=== PATIENT | male | born 1945 | race Caucasian/White ===

== ENCOUNTER 2018-07-12 20:08 | Observation (INO) | payer MEDICARE ==
[~2018-07-12] VITALS: Ht 172.7 cm; Wt 102.6 kg
--- NOTE | ~2018-07-12 | EC ---
PATIENT:FRANCISCO J HUGHES DATE OF SERVICE: 07/13/18 SEX: M MEDICAL RECORD: [id number] DATE OF : 43 LOCATION:D.M2 D.210 AGE OF PATIENT: 72 ADMISSION DATE: 07/13/18 REFERRING PHYSICIAN: INTERPRETING PHYSICIAN: NANCY HATHAWAY MD ECHOCARDIOGRAM REPORT ECHO CHARGES 4 ECHO COMPLETE Date: 07/13/18 CLINICAL DIAGNOSIS: VERTIGO ECHOCARDIOGRAPHIC MEASUREMENTS (adult normal given) AC root (d.<3.7cm) 3.4 cm LV Septum d (<1.2 cm> 1.5 cm Valve Excursion 2.0 cm LV Septum (systole) 2.3 cm Left Atria (s.<4.0cm> 3.7 cm LVPW d(<1.2cm) 1.6 cm RV (d.<2.3cm) 2.7 cm LVPW (sytole) 2.2 cm LV diastole(<5.6CM) 5.3 cm MV E-F(>70mm/sec) cm LV systole 2.6 cm LVOT Diameter 2.1 cm MV exc.(>10mm) cm Est.ejection fraction (50-75%) % DOPPLER: LVIT cm/sec A 79.0 cm/sec E 67.0 cm/sec LA cm/sec RVSP 29.0 mmHg LVOT 118 cm/sec AOP1/2T m/s Asc. Ao 159 cm/sec RVOT 64.0 cm/sec RA cm/sec PA 86.0 cm/sec AV Gradient Peak 10.1 mmHg AV Mean 5.2 mmHg AV Area 2.5 cm MV Gradient Peak 4.9 mmHg MV Mean 1.4 mmHg MV Area cm COMMENTS: Moving Worker: 1 SUKHDEV GUY Irrigation Manager: 2 Dr. Perez TAPE# PACS Pericardial Effusion N DATE OF SERVICE: 07/13/2018 Echocardiogram FINDINGS: 1. Left ventricular chamber size is within normal limits. Left ventricular systolic function is normal. Overall ejection fraction estimated at 60%. 2. Left atrium, right atrium, right ventricle chamber sizes are within normal limits. 3. Valvular structures have normal structure and motion. ECHOCARDIOGRAM REPORT [id number] FRANCISCO J HUGHES 4. Doppler interrogation reveals mild mitral regurgitation, mild tricuspid regurgitation, no other valvular insufficiency or stenosis. Pulmonary systolic pressure is normal, estimated at 29 mmHg. 5. No evidence of pericardial effusion or left ventricular thrombus. TRANSINT:[id number] Voice Confirmation ID: [id number] DOCUMENT ID: [id number] NANCY HATHAWAY MD at 0950 CC: [id number] DICTATION DATE: 07/14/18909 WOOD CASKET MAKER: 07/14/18 0941 ADM IN [facility] [address] [place] [id number]
--- NOTE | ~2018-07-12 | CN ---
PATIENT NAME:FRANCISCO J HUGHES MEDICAL RECORD: [id number] : 43 LOCATION:. D.2103 ADMIT DATE: 07/13/18 ACCOUNT: [id number] CONSULTING PHYSICIAN: NANCY HATHAWAY MD REFERRING PHYSICIAN: SJ DAWSON DO DATE OF CONSULTATION: 07/13/2018 DIAGNOSES: 1. Dizziness/vertigo. 2. Hypertension. 3. Hyperlipidemia. HISTORY OF PRESENT ILLNESS: This is a gentleman who presents with dizziness. No chest pain. No chest discomfort, no shortness of breath. He was initially found to have his systolic blood pressure in the 200 range, it has remained high; however, he has not taken his medications. HOME MEDICATIONS: Lisinopril 20 mg daily, metoprolol XL 100 mg a day. He has normal troponin. His EKG is with no ST-T abnormalities. PHYSICAL EXAMINATION: GENERAL APPEARANCE: Well-nourished, well-developed, appears stated age. Level of distress, comfortable. PSYCHIATRIC: Mental status, alert, normal affect. Orientation, oriented to time, place and person. EYES: Lids and conjunctiva, noninjected. No discharge, no pallor. ENT: Lips, teeth, gums, normal dentition. Oropharynx, no cyanosis, no pallor. NECK: Carotid arteries, bilateral normal upstroke, no bruits, no thrills. JUGULAR VEINS: No jugular venous pressure or distention. CERVICAL LYMPH NODES: Nontender, nonenlarged. THYROID: Not enlarged. Nontender. No nodules. LUNGS: Respiratory effort, unlabored. CHEST: Normal curvature. No thoracic deformity. No chest wall tenderness. Percussion, resonant. Auscultation, clear. No wheezes, no rales, no rhonchi. CARDIOVASCULAR: Precordial exam, nondisplaced. No heaves or pericardial thrills. Rate and rhythm, regular. Heart sounds, normal S1, normal S2. No S3, no gallop, no rub. Systolic murmur, not heard. Diastolic murmur, not heard. EXTREMITIES: No cyanosis, no edema. Peripheral pulses, full and equal in all extremities, except as noted. No bruits appreciated. ABDOMEN: Soft, nondistended. Normal aorta. No bruit. Nontender. No masses. Liver, nontender, no hepatomegaly. Spleen, nontender, no splenomegaly. MUSCULOSKELETAL: No joint tenderness. No joint swelling. No erythema. NEUROLOGICAL: Normal gait, normal strength, normal tone. SKIN: Warm and dry. OVERALL IMPRESSION: Dizziness. Clearly, his blood pressure is not well controlled. Would increase his lisinopril to 40 mg every day, would not increase the Toprol secondary to his heart rate being in the 60s. I do not think that any of his symptomatology is cardiac in nature and no other cardiac workup is necessary other than the echo that has been ordered. TRANSINT:[id number] Voice Confirmation ID: [id number] DOCUMENT ID: [id number] CONSULT REPORT [id number] FRANCISCO J HUGHES, NANCY ALLRED at 1616 CC: [id number] DICTATION DATE: 07/13/18 1330 EMT P: 07/13/18 1336 ADM IN [place] [id number] [place] [id number]
[~2018-07-12 20:08] MED LIST: CRESTOR10 MG PO; PRINIVIL20 MG PO; TOPROL XL100 MG PO; TRILIPIX135 MG PO; ZOCOR80 MG PO
[2018-07-12] MEDS ORDERED: BAYER CHEWABLE81 MG PO (20:12)
[2018-07-12] MEDS ORDERED: COREG 3.1253.125 MG PO (20:12)
[2018-07-12 20:37] LABS: BASOPHILS 0.1 % (0-2); EOSINOPHILS 2.6 % (0-7); HEMATOCRIT 41.3 % (42.0-54.0); HEMOGLOBIN 14.4 g/dL (13.5-17.5); IMMATURE GRANULOCYTES 0.2 % (0-5); MCH 31.9 pg (26.0-34.0); MCHC 34.9 g/dL (31.0-37.0); MCV 91.6 fL (80.0-100.0); MONOCYTES 7.5 % (2-11); NEUTROPHILS 70.6 % (40-80); PLATELET COUNT 169 10x3/uL (130-400); RBC 4.51 10x6/uL (4.20-6.10); RDW 13.5 % (11.5-14.5); WBC 9.5 10x3/uL (4.8-10.8)
[2018-07-12 20:57] LABS: ALKALINE PHOSPHATASE 57 U/L (46-116); ALT (SGPT) 36 U/L (10-68); BILIRUBIN - TOTAL 0.43 mg/dL (0.2-1.3); CALC OSMOLALITY 290 mosm/kg (275-300); CALCIUM 9.3 mg/dL (8.5-10.1); CARBON DIOXIDE 25.8 mmol/L (21.0-32.0); CHLORIDE - SERUM 105 mmol/L (98-107); CREATININE - SERUM 1.7 mg/dL (0.6-1.3); GLUCOSE 143 mg/dL (74-106); POTASSIUM - SERUM 3.9 mmol/L (3.5-5.1); PROTEIN - SERUM 7.9 g/dL (6.4-8.2); SODIUM 144 mmol/L (136-145); UREA NITROGEN 19 mg/dL (7-18); eGFR NON AFRICAN AMERICAN 42 mL/min (90-120)
[2018-07-12 21:21] LABS: CREATINE KINASE 439 UL (21-232)
[2018-07-12 21:22] LABS: TROPONIN-I < 0.017 ng/mL (0.000-0.060)
[2018-07-12 21:23] LABS: CKMB 1.8 U/L (0.0-3.6)
[2018-07-13] VITALS (7 sets, daily range): BP systolic 148–178; BP diastolic 71–87; Ht 172.7 cm; Wt 102.6 kg
[2018-07-13 07:07] LABS: BASOPHILS 0.2 % (0-2); EOSINOPHILS 0.3 % (0-7); HEMATOCRIT 39.7 % (42.0-54.0); HEMOGLOBIN 13.6 g/dL (13.5-17.5); IMMATURE GRANULOCYTES 0.3 % (0-5); LYMPHOCYTES 29.3 % (15-50); MCH 31.6 pg (26.0-34.0); MCHC 34.3 g/dL (31.0-37.0); MCV 92.3 fL (80.0-100.0); MEAN PLATELET VOLUME 9.8 fL (7.4-10.4); MONOCYTES 10.6 % (2-11); NEUTROPHILS 59.3 % (40-80); PLATELET COUNT 167 10x3/uL (130-400); RDW 13.7 % (11.5-14.5); WBC 6.6 10x3/uL (4.8-10.8)
[2018-07-13 07:08] LABS: ANION GAP 13.7 mmol/L (8-16); CALCIUM 8.8 mg/dL (8.5-10.1); CARBON DIOXIDE 26.5 mmol/L (21.0-32.0); CREATININE - SERUM 1.8 mg/dL (0.6-1.3); POTASSIUM - SERUM 4.2 mmol/L (3.5-5.1)
[2018-07-14 01:02] VITALS: BP 155/84
[2018-07-14 04:47] LABS: BASOPHILS 0.3 % (0-2); EOSINOPHILS 3.3 % (0-7); HEMATOCRIT 38.9 % (42.0-54.0); HEMOGLOBIN 13.1 g/dL (13.5-17.5); IMMATURE GRANULOCYTES 0.2 % (0-5); LYMPHOCYTES 42.3 % (15-50); MCH 31.1 pg (26.0-34.0); MCHC 33.7 g/dL (31.0-37.0); MCV 92.4 fL (80.0-100.0); MEAN PLATELET VOLUME 9.8 fL (7.4-10.4); MONOCYTES 9.6 % (2-11); NEUTROPHILS 44.3 % (40-80); PLATELET COUNT 152 10x3/uL (130-400); RBC 4.21 10x6/uL (4.20-6.10); RDW 13.6 % (11.5-14.5); WBC 6.6 10x3/uL (4.8-10.8)
[2018-07-14 05:18] LABS: ALBUMIN 3.3 g/dL (3.4-5.0); ANION GAP 14.6 mmol/L (8-16); BILIRUBIN - TOTAL 0.38 mg/dL (0.2-1.3); CALCIUM 8.5 mg/dL (8.5-10.1); CARBON DIOXIDE 24.6 mmol/L (21.0-32.0); CREATININE - SERUM 1.7 mg/dL (0.6-1.3); POTASSIUM - SERUM 4.2 mmol/L (3.5-5.1); PROTEIN - SERUM 6.7 g/dL (6.4-8.2)
[2018-07-14 05:51] VITALS: BP 159/75
[2018-07-14 08:30] VITALS: BP 179/84
[2018-07-14] MEDS ORDERED: ZESTRIL40 MG (09:05)
[2018-07-14] MEDS ORDERED: ECOTRIN325 MG PO (09:06)
[2018-07-14 12:58] VITALS: BP 175/84
== END 2018-07-14 14:41 | disposition home or self-care (01) ==
LOC: D.ER 20:08 → D.EDHOLD 07-13 02:09 → OBSVTIME 07-13 02:09 → D.M2 07-13 02:09 → D.EDHOLD 07-13 02:09 → D.M2 07-13 08:11
PROVIDERS: Family Medicine
DX: R42 Dizziness and giddiness (principal); I10 Essential (primary) hypertension; E78.5 Hyperlipidemia, unspecified; N28.9 Disorder of kidney and ureter, unspecified; Z72.0 Tobacco use

== ENCOUNTER 2018-07-24 10:08 | Inpatient (IN) | payer MEDICARE ==
[~2018-07-24] VITALS: Ht 172.7 cm; Wt 104.8 kg
--- NOTE | ~2018-07-24 | HP ---
PATIENT: FRANCISCO J HUGHES MEDICAL RECORD: [id number] ACCOUNT: [id number] LOCATION:[facility] D2308 : [birth year] ADMISSION DATE: 07/24/18 PCP: JEFE LOPEZ MD HISTORY AND PHYSICAL EXAMINATION DATE OF ADMISSION: 07/24/2018 CHIEF COMPLAINT: Abdominal pain. HISTORY OF PRESENT ILLNESS: The patient states he was in his normal state of health until yesterday, he developed diffuse abdominal discomfort. He has had nausea. He has had some diarrhea, continues to have pain and has reported fever up to 104. PAST MEDICAL HISTORY: His past history is significant that he has had COPD. He recently had a TIA. He has had a history of hypertension, hyperlipidemia, rheumatoid arthritis, borderline diabetes. FAMILY HISTORY: Significant for having had malignant neoplasm of the prostate in his father. Mother of myocardial infarction. MEDICATIONS: Include aspirin 81 mg once a day, carvedilol 12.5 b.i.d., pravastatin 80 mg p.o. at bedtime, vitamin D3 5000 international units daily. ALLERGIES: AUGMENTIN, LISINOPRIL, MEDROL DOSEPAK, PLAVIX, ZANTAC. SOCIAL HISTORY: The patient is . He is a 1 pack per day smoker and has been so for most of his adult life. 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 He is educated through the 8th grade. The patient denies any ethanol use or abuse. REVIEW OF SYSTEMS: GENERAL: He denies any headaches, seizure or syncope. HEENT: Denies change in visual or auditory acuity. PULMONARY: He denies any cough, congestion, history of TB, asthma or bronchitis. CARDIOVASCULAR: No chest pain, palpitation, PND or orthopnea. GASTROINTESTINAL: No chronic nausea, vomiting, melena, or hematochezia. GENITOURINARY: No urgency, frequency, or dysuria. PHYSICAL EXAMINATION: VITAL SIGNS: Today, his weight is 220. His blood pressure is 142/70. His pulse is 80. His respirations are 20. Temperature is 99.1. HEENT: Head is normocephalic. No lesions. Ears: TMs clear. Eyes: Pupils equal, round and reactive to light. His extraocular movements are intact. His nasal cavity, oral cavity, oropharynx are clear. NECK: Supple. There is no adenopathy. HEART: Has a regular rate. LUNGS: Clear. ABDOMEN: Distended. Bowel sounds are hypoactive, diffusely tender with rebound and guarding. RECTAL: Deferred. LABORATORY DATA: The patient had a white count today elevated at 11.7. He has a left shift. Hemoglobin 14.6, hematocrit 45, his platelets are 234. HISTORY AND PHYSICAL [id number] FRANCISCO J HUGHES ASSESSMENT: Acute abdomen. PLAN: The patient will be admitted. He will have a CT of the abdomen and pelvis. He will have blood cultures obtained, placed on Flagyl as well as Levaquin. Surgical consultation will be obtained as well. He will have blood cultures times 2, placed on Dilaudid for pain control, IV hydration. TRANSINT:[id number] Voice Confirmation ID: [id number] DOCUMENT ID: [id number] JEFE LOPEZ MD at 0702 CC: [id number] DICTATION DATE: 07/24/18 1052 AGRICULTURAL LOAN OFFICER: 07/24/18 1203 ADM IN [facility] [address] [place] [address]
[~2018-07-24 10:08] MED LIST changes: +BAYER CHEWABLE81 MG PO; +COREG 3.1253.125 MG PO; +ECOTRIN325 MG PO; +ZESTRIL40 MG
[2018-07-24 10:38] VITALS: BP 184/84; BMI 33.8
[2018-07-24 11:55] LABS: BASOPHILS 0 % (0-2); EOSINOPHILS 0 % (0-7); HEMATOCRIT 42.7 % (42.0-54.0); HEMOGLOBIN 14.9 g/dL (13.5-17.5); IMMATURE GRANULOCYTES 0.2 % (0-5); LYMPHOCYTES 9.8 % (15-50); MCHC 34.9 g/dL (31.0-37.0); MCV 91.8 fL (80.0-100.0); MEAN PLATELET VOLUME 10.4 fL (7.4-10.4); PLATELET COUNT 162 10x3/uL (130-400); RBC 4.65 10x6/uL (4.20-6.10); RDW 13.6 % (11.5-14.5); WBC 10.6 10x3/uL (4.8-10.8)
[2018-07-24 12:02] VITALS: BP 184/89
[2018-07-24 12:10] LABS: APPEARANCE CLEAR (CLEAR); COLOR YELLOW (YELLOW); SPECIFIC GRAVITY 1.025 (1.005-1.020)
[2018-07-24 12:11] LABS: BACTERIA FEW /hpf (NONE SEEN); BILIRUBIN NEGATIVE (NEGATIVE); EPITHELIAL CELLS NSEEN /hpf (0-5); GLUCOSE NEGATIVE (NEGATIVE); KETONE NEGATIVE (NEGATIVE); NITRITE POSITIVE (NEGATIVE); PROTEIN TRACE mg/dL (NEGATIVE); RED CELLS - URINE 0-5 /hpf (0-5); UROBILINOGEN NORMAL (NORMAL); WHITE CELLS - URINE NSEEN /hpf (0-5)
[2018-07-24 12:12] LABS: AMORPHOUS SEDIMENT <1+ /lpf (NONE SEEN)
[2018-07-24 12:29] LABS: ALBUMIN 3.6 g/dL (3.4-5.0); ANION GAP 14.7 mmol/L (8-16); BILIRUBIN - TOTAL 0.53 mg/dL (0.2-1.3); CALCIUM 9.7 mg/dL (8.5-10.1); CARBON DIOXIDE 23.7 mmol/L (21.0-32.0); CREATININE - SERUM 1.8 mg/dL (0.6-1.3); POTASSIUM - SERUM 4.4 mmol/L (3.5-5.1); PROTEIN - SERUM 7.2 g/dL (6.4-8.2)
[2018-07-24 19:50] VITALS: BP 198/107
[2018-07-24 21:15] VITALS: BP 169/89
[2018-07-24 22:00] VITALS: BP 167/86
[2018-07-24 23:00] VITALS: BP 175/90
[2018-07-25] VITALS (24 sets, daily range): BP systolic 141–172; BP diastolic 73–105; Ht 172.7 cm; Wt 104.8 kg
[2018-07-25 03:59] LABS: BASOPHILS 0.1 % (0-2); EOSINOPHILS 0.1 % (0-7); HEMATOCRIT 39.3 % (42.0-54.0); HEMOGLOBIN 13.4 g/dL (13.5-17.5); IMMATURE GRANULOCYTES 0.2 % (0-5); LYMPHOCYTES 11.1 % (15-50); MCH 31.4 pg (26.0-34.0); MCHC 34.1 g/dL (31.0-37.0); MEAN PLATELET VOLUME 9.9 fL (7.4-10.4); MONOCYTES 8.5 % (2-11); PLATELET COUNT 152 10x3/uL (130-400); RBC 4.27 10x6/uL (4.20-6.10); RDW 13.6 % (11.5-14.5); WBC 9.1 10x3/uL (4.8-10.8)
[2018-07-25 04:33] LABS: ANION GAP 11.5 mmol/L (8-16); BILIRUBIN - TOTAL 0.35 mg/dL (0.2-1.3); CALCIUM 9.2 mg/dL (8.5-10.1); CARBON DIOXIDE 27.6 mmol/L (21.0-32.0); CREATININE - SERUM 1.8 mg/dL (0.6-1.3); MAGNESIUM - SERUM 1.6 mg/dL (1.8-2.4); PHOSPHOROUS 3.4 mg/dL (2.5-4.9); POTASSIUM - SERUM 4.1 mmol/L (3.5-5.1); PROTEIN - SERUM 7.1 g/dL (6.4-8.2)
[2018-07-25 07:37] LABS: APTT 48.9 SECONDS (22.8-39.4); INR 1.29 (0.85-1.17); PROTIME 15.6 SECONDS (11.6-15.0)
[2018-07-26] VITALS (16 sets, daily range): BP systolic 143–200; BP diastolic 69–113
[2018-07-26 04:19] LABS: BASOPHILS 0.1 % (0-2); EOSINOPHILS 1.2 % (0-7); HEMATOCRIT 39.8 % (42.0-54.0); HEMOGLOBIN 13.4 g/dL (13.5-17.5); IMMATURE GRANULOCYTES 0.1 % (0-5); LYMPHOCYTES 12.7 % (15-50); MCH 31.2 pg (26.0-34.0); MCHC 33.7 g/dL (31.0-37.0); MCV 92.8 fL (80.0-100.0); MEAN PLATELET VOLUME 9.7 fL (7.4-10.4); MONOCYTES 10.8 % (2-11); NEUTROPHILS 75.1 % (40-80); PLATELET COUNT 133 10x3/uL (130-400); RBC 4.29 10x6/uL (4.20-6.10); RDW 13.7 % (11.5-14.5); WBC 7.6 10x3/uL (4.8-10.8)
[2018-07-26 04:27] LABS: ANION GAP 13.1 mmol/L (8-16); CALCIUM 8.6 mg/dL (8.5-10.1); CARBON DIOXIDE 26.5 mmol/L (21.0-32.0); CREATININE - SERUM 1.6 mg/dL (0.6-1.3); POTASSIUM - SERUM 3.6 mmol/L (3.5-5.1)
[2018-07-27 05:09] VITALS: BP 171/94
[2018-07-27 05:27] LABS: BASOPHILS 0 % (0-2); EOSINOPHILS 2.7 % (0-7); HEMATOCRIT 40.2 % (42.0-54.0); HEMOGLOBIN 13.7 g/dL (13.5-17.5); IMMATURE GRANULOCYTES 0.1 % (0-5); MCH 31.4 pg (26.0-34.0); MCHC 34.1 g/dL (31.0-37.0); MEAN PLATELET VOLUME 10.1 fL (7.4-10.4); MONOCYTES 14.8 % (2-11); NEUTROPHILS 67.4 % (40-80); RBC 4.37 10x6/uL (4.20-6.10); RDW 13.5 % (11.5-14.5); WBC 7.1 10x3/uL (4.8-10.8)
[2018-07-27 05:28] LABS: PLATELET COUNT 183 10x3/uL (130-400)
[2018-07-27 05:51] LABS: CALCIUM 8.8 mg/dL (8.5-10.1); CARBON DIOXIDE 28.5 mmol/L (21.0-32.0); CREATININE - SERUM 1.4 mg/dL (0.6-1.3); POTASSIUM - SERUM 3.5 mmol/L (3.5-5.1)
[2018-07-27 08:14] VITALS: BP 177/95
[2018-07-27 20:00] VITALS: BP 155/95
[2018-07-28 04:00] VITALS: BP 194/104
[2018-07-28 05:00] LABS: BASOPHILS 0.2 % (0-2); EOSINOPHILS 2.3 % (0-7); HEMATOCRIT 39.7 % (42.0-54.0); HEMOGLOBIN 13.7 g/dL (13.5-17.5); IMMATURE GRANULOCYTES 0.2 % (0-5); LYMPHOCYTES 16.8 % (15-50); MCH 31.2 pg (26.0-34.0); MCHC 34.5 g/dL (31.0-37.0); MCV 90.4 fL (80.0-100.0); MONOCYTES 16.2 % (2-11); NEUTROPHILS 64.3 % (40-80); PLATELET COUNT 189 10x3/uL (130-400); RBC 4.39 10x6/uL (4.20-6.10); RDW 13.4 % (11.5-14.5); WBC 6.2 10x3/uL (4.8-10.8)
[2018-07-28 05:14] LABS: ALBUMIN 2.6 g/dL (3.4-5.0); ANION GAP 15.4 mmol/L (8-16); BILIRUBIN - TOTAL 0.36 mg/dL (0.2-1.3); CALCIUM 8.9 mg/dL (8.5-10.1); CARBON DIOXIDE 23.4 mmol/L (21.0-32.0); CREATININE - SERUM 1.3 mg/dL (0.6-1.3); MAGNESIUM - SERUM 1.7 mg/dL (1.8-2.4); PHOSPHOROUS 3.1 mg/dL (2.5-4.9); POTASSIUM - SERUM 3.8 mmol/L (3.5-5.1); PROTEIN - SERUM 6.6 g/dL (6.4-8.2)
[2018-07-28 09:25] VITALS: BP 175/100
[2018-07-28 16:31] VITALS: BP 186/113
[2018-07-28 19:58] VITALS: BP 176/84
[2018-07-29] VITALS: BP 195/101
[2018-07-29 04:00] VITALS: BP 163/92
[2018-07-29 06:26] LABS: BASOPHILS 0.3 % (0-2); EOSINOPHILS 1.2 % (0-7); HEMATOCRIT 38.2 % (42.0-54.0); HEMOGLOBIN 13.2 g/dL (13.5-17.5); IMMATURE GRANULOCYTES 0.3 % (0-5); LYMPHOCYTES 15.8 % (15-50); MCH 31.3 pg (26.0-34.0); MCHC 34.6 g/dL (31.0-37.0); MCV 90.5 fL (80.0-100.0); MONOCYTES 14.9 % (2-11); NEUTROPHILS 67.5 % (40-80); PLATELET COUNT 181 10x3/uL (130-400); RBC 4.22 10x6/uL (4.20-6.10); RDW 13.4 % (11.5-14.5); WBC 6.6 10x3/uL (4.8-10.8)
[2018-07-29 07:02] LABS: ALBUMIN 2.6 g/dL (3.4-5.0); ANION GAP 11.8 mmol/L (8-16); BILIRUBIN - TOTAL 0.33 mg/dL (0.2-1.3); CALCIUM 8.5 mg/dL (8.5-10.1); CARBON DIOXIDE 25.7 mmol/L (21.0-32.0); CREATININE - SERUM 1.2 mg/dL (0.6-1.3); MAGNESIUM - SERUM 1.6 mg/dL (1.8-2.4); PHOSPHOROUS 2.7 mg/dL (2.5-4.9); POTASSIUM - SERUM 3.5 mmol/L (3.5-5.1); PROTEIN - SERUM 6.3 g/dL (6.4-8.2)
[2018-07-29 09:39] VITALS: BP 198/106
[2018-07-29 12:00] VITALS: BP 167/87
[2018-07-29 16:00] VITALS: BP 142/74
[2018-07-29 21:11] VITALS: BP 149/81
[2018-07-30 04:24] LABS: BASOPHILS 0.3 % (0-2); HEMOGLOBIN 12.4 g/dL (13.5-17.5); IMMATURE GRANULOCYTES 0.3 % (0-5); LYMPHOCYTES 22.8 % (15-50); MCHC 34.4 g/dL (31.0-37.0); MONOCYTES 15.2 % (2-11); NEUTROPHILS 59.4 % (40-80); PLATELET COUNT 180 10x3/uL (130-400); RDW 13.6 % (11.5-14.5); WBC 6.6 10x3/uL (4.8-10.8)
[2018-07-30 04:41] LABS: ALBUMIN 2.6 g/dL (3.4-5.0); ANION GAP 12.7 mmol/L (8-16); BILIRUBIN - TOTAL 0.28 mg/dL (0.2-1.3); CALCIUM 8.4 mg/dL (8.5-10.1); CARBON DIOXIDE 26.5 mmol/L (21.0-32.0); CREATININE - SERUM 1.3 mg/dL (0.6-1.3); MAGNESIUM - SERUM 1.7 mg/dL (1.8-2.4); PHOSPHOROUS 3.2 mg/dL (2.5-4.9); POTASSIUM - SERUM 3.2 mmol/L (3.5-5.1); PROTEIN - SERUM 6.1 g/dL (6.4-8.2)
[2018-07-30 06:05] VITALS: BP 146/78
[2018-07-30 08:38] VITALS: BP 176/84
[2018-07-30 12:50] VITALS: BP 170/92
[2018-07-30] MEDS ORDERED: CEFUROXIME500 MG PO (15:01)
[2018-07-30] MEDS ORDERED: FLAGYL500 MG PO (15:02)
== END 2018-07-30 16:40 | disposition home or self-care (01) | DRG 392 ==
LOC: D.M3 10:08 → D.ICU 10:08 → D.MS 07-26 16:29
PROVIDERS: Family Medicine; General Practice; Surgery
PROC: 0D9W3ZZ Drainage of Peritoneum, Percutaneous Approach (ICD-10-PCS; principal; 2018-07-25 11:20)
DX: K57.20 Diverticulitis of large intestine with perforation and abscess without bleeding (principal); J44.9 Chronic obstructive pulmonary disease, unspecified; I10 Essential (primary) hypertension; E78.5 Hyperlipidemia, unspecified; K59.00 Constipation, unspecified; F17.200 Nicotine dependence, unspecified, uncomplicated

== ENCOUNTER → 2018-09-06 07:52 | Outpatient (CLI) | payer MEDICARE ==
[2018-07-25 12:37] VITALS: BMI 34.0
[~2018-09-06 07:52] MED LIST changes: +ACETAMINOPHEN325 MG; +CEFUROXIME500 MG PO; +COREG12.5 MG PO; +FLAGYL500 MG PO; +PRAVACHOL80 MG PO
== END | disposition home or self-care (01) ==
LOC: D.CT 07:52
DX: I65.23 Occlusion and stenosis of bilateral carotid arteries (principal)

== ENCOUNTER 2018-09-26 05:00 | Inpatient (IN) | payer MEDICARE ==
[2018-09-25 12:02] LABS: APTT 28.9 SECONDS (22.8-39.4); INR 1.1 (0.85-1.17); PROTIME 13.7 SECONDS (11.6-15.0)
[2018-09-25 12:06] LABS: HEMATOCRIT 41.2 % (42.0-54.0); MCH 31.7 pg (26.0-34.0); MCV 93.2 fL (80.0-100.0); RBC 4.42 10x6/uL (4.20-6.10); RDW 13.8 % (11.5-14.5); WBC 6.8 10x3/uL (4.8-10.8)
[2018-09-25 12:07] LABS: ALBUMIN 3.6 g/dL (3.4-5.0); ANION GAP 12.9 mmol/L (8-16); BILIRUBIN - TOTAL 0.36 mg/dL (0.2-1.3); CARBON DIOXIDE 27.4 mmol/L (21.0-32.0); CREATININE - SERUM 1.6 mg/dL (0.6-1.3); POTASSIUM - SERUM 4.3 mmol/L (3.5-5.1); PROTEIN - SERUM 8.1 g/dL (6.4-8.2)
[2018-09-25 12:09] LABS: APPEARANCE HAZY (CLEAR); BACTERIA FEW /hpf (NONE SEEN); BILIRUBIN NEGATIVE (NEGATIVE); COLOR YELLOW (YELLOW); EPITHELIAL CELLS 0-5 /hpf (0-5); GLUCOSE NEGATIVE (NEGATIVE); GRANULAR CAST OCC /lpf (NONE SEEN); KETONE NEGATIVE (NEGATIVE); MUCUS >1+ /lpf (NONE SEEN); NITRITE NEGATIVE (NEGATIVE); PROTEIN 1+ mg/dL (NEGATIVE); SPECIFIC GRAVITY 1.015 (1.005-1.020); UROBILINOGEN NORMAL (NORMAL); WHITE CELLS - URINE RARE /hpf (0-5)
[~2018-09-26] VITALS: Ht 172.7 cm; Wt 98.7 kg
[2018-09-26] VITALS (55 sets, daily range): BP systolic 98–164; BP diastolic 42–109; Ht 172.7 cm; Wt 98.7 kg
--- NOTE | ~2018-09-26 | HP ---
PATIENT: FRANCISCO J HUGHES MEDICAL RECORD: [id number] ACCOUNT: [id number] LOCATION:[facility].CV08 : 43 ADMISSION DATE: 09/26/18 PCP: CHENCHO CHÁVEZ MD HISTORY AND PHYSICAL EXAMINATION FRANCISCO J Spaulding (72yo, M) ID# [id number]. Date/Time09/24/2018 01:09HABJI1944Service Dept.NPP_[facility] ClinicProviderEDEMY CHÁVEZ MDInsuranceMed Primary: HUMANA - GOLD PLUS (MEDICARE REPLACEMENT/ADVANTAGE - HMO) Insurance # : [id number] PCP : JEFE LOPEZ Referring Provider Name : JEFE LOPEZ Employer Name : RETIRED Prescription: DSTPSDIR - Member is eligible. Chief Complaint Carotid stenosis Patient's Care Team Primary Care Provider (): JEFE LOPEZ: [address] [place] [address], , Referring Provider (): JEFE LOPEZ: [address] [place] [address], , Patient's Pharmacies [facility] [address] [place] [address], , Vitals BP:146/98 sitting R arm 09/24/2018 01:39 pm 152/98 sitting L arm 09/24/2018 01:39 pmHR:78/reg 09/24/2018 01:39 pmHt:5 ft 8 in 09/24/2018 01:34 pmWt:208 lbs 09/24/2018 01:35 pmBMI:31.6 09/24/2018 01:35 pmAllergies Reviewed Allergies ZANTACMedications Reviewed Medications acetaminophen 500 mg start filledSara BeckwithBayer Aspirin 325 mg tablet Take 1 tablet(s) every day by oral route.09/20/18 enteredSara BeckwithBenadryl 25 mg capsule Take 2 capsule(s) every 4 hours by oral route.09/20/18 [facility]ra Floreswithcarvedilol 12.5 mg uftxnx09/19/18 [facility] My Healthy World SystemscefUROXime axetil 500 mg uwwjyh20/08/18 filledArgus My Healthy World Systemspravastatin 80 mg /19/18 filledArgCalpurnia Corporation SystemsVitamin D3 5000 IU Q Daily09/20/18 enteredSara BeckwithVaccines Reviewed Vaccines Vaccine TypeDateAmt.RouteSiteLot #Mfr.Exp. DateDate on VISVIS GivenVaccinatorInfluenzainfluenza, injectable, zjcrpzdsubqg18/01/18Pneumococcalpneumo bweyur48/01/18Problems Reviewed Problems Diabetes mellitus Hypercholesterolemia - Onset: 09/20/2018 Carotid artery stenosis Gastroesophageal reflux disease without esophagitis - Onset: 09/20/2018 Walters's esophagus Rheumatoid arthritis HISTORY AND PHYSICAL [id number] FRANCISCO J HUGHES Dyspnea History of diverticulitis - Onset: 09/20/2018 Nicotine dependence with current use - Onset: 09/20/2018 Family History Reviewed Family History Non-contributory.Mother- Hypertensive disorder - Family history of blood coagulation disorder - Myocardial infarction ( age: 76)Brother- Substance abuseFather- Substance abuse - Family history of blood coagulation disorder - Cerebrovascular accident - Chronic obstructive lung disease - Hypertensive disorder - Malignant tumor of prostate ( age: 83) - AsthmaSocial History Reviewed Social History General Occupation: retired Education: Less than 8th Grade Marital status: Sexual orientation: Heterosexual Exercise level: Occasional Diet: Regular Smoking Status: Current every day smoker Smoker (1/2 PPD) Alcohol intake: None Caffeine intake: Heavy Surgical History Reviewed Surgical History Repair of umbilical hernia Colonoscopy (surg) - 04/03/2013 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 HPI Cerebral Vascular Disease Reported by patient. Quality: dizziness Duration: has noted for months; 2-3 months ago Onset/Timing: intermittent; weekly Context: while straining; while lifting Aggravating Factors: position change Associated Symptoms: no headache; no nausea; no vomiting; no tinnitus; no difficulty speaking; no lethargy; no fever; no chills; no palpitations; no syncope; no loss of consciousness HISTORY AND PHYSICAL [id number] FRANCISCO J HUGHES Severe left internal carotid artery stenosis ROS Patient reports weight loss (___ lbs) but reports no fever, no night sweats, no significant weight gain, and no exercise intolerance. He reports difficulty hearing but reports no ear pain. He reports nose/sinus problems but reports no frequent nosebleeds. He reports snoring but reports no sore throat, no bleeding gums, no dry mouth, no mouth ulcers, no oral abnormalities, and no teeth problems. He reports no jugular vein distension and no swollen glands; Left carotid bruit. He reports cough and sleep apnea but repo rts no wheezing, no shortness of breath, and no coughing up blood. He reports abdominal pain but reports no vomiting, normal appetite, no diarrhea, not vomiting blood, no nausea, and no constipation. He reports increased urinary frequency but reports no incontinence, no difficulty urinating, and no hematuria. He reports swelling in the extremities but reports no muscle aches, no muscle weakness, no arthralgias/joint pain, and no back pain. He reports fatigue and cold intolerance. He reports easy bruising and excessive bleeding but reports no swollen glands. He reports runny nose, sinus pressure, and frequent sneezing but reports no itching and no hives. He reports no dry eyes, no irritation, and no vision change. He reports no chest pain, no arm pain on exer tion, no shortness of breath when walking, no shortness of breath when lying down, no palpitations, and no known heart murmur. He reports no abnormal mole, no jaundice, and no rashes. He reports no loss of consciousness, no weakness, no numbness, no seizu res, no dizziness, and no headaches. He reports no depression, no sleep disturbances, feeling safe in relationship, and no alcohol abuse. ROS as noted in the HPI Physical Exam Patient is a 72-year-old male. Constitutional: General Appearance overweight. Cardiovascular: Neck Vessels Left carotid bruit. Arterial Pulses dorsalis pedis not palpable (Bilaterally). Lungs: Percussion hyperresonance. Ears, Nose, Throat: Hearing hearing decreased. Assessment / Plan Severe left internal carotid artery stenosis 1. Carotid artery stenosis I65.29: Occlusion and stenosis of unspecified carotid artery CAROTID STENOSIS: CARE INSTRUCTIONS Discussion Notes I have discussed the patient's disease process with him and his family in detail as well as the alternative method s of treatment. We discussed left carotid endarterectomy including the expected benefits and risks which include bleeding, infection, stroke, , and the imponderables. He understands all the above and wishes to proceed with planned surgery. Return to Office None recorded. HISTORY AND PHYSICAL [id number] FRANCISCO J HUGHES EDWARD MD at 1305 CC: [id number] DICTATION DATE: 09/24/18 1330 PAPER CONE MACHINE TENDER: BRAN 09/27/18 1235 DIS IN 09/28/18 [facility] [address] [place] [address]
--- NOTE | ~2018-09-26 | MORECARE ---
CASE MANAGEMENT DISCHARGE SUMMARY PATIENT: FRANCISCO J HUGHES UNIT: [id number] ADM DATE: 09/26/18 AGE: 72 : 43 SEX: M [facility] AUTHOR: PRIMO,DOC PHYSICIAN: REFERRING PHYSICIAN: CHENCHO CHÁVEZ MD DATE OF SERVICE: 09/28/18 Discharge Plan Patient Name: FRANCISCO J HUGHES Facility: [facility]:[place] : 1945 Planned Disposition: Home Anticipated Discharge Date: Discharge Date: Expected LOS: Initial Reviewer: [email or web address] Initial Review Date: 09/28/2018 Generated: 09/28/18 12:19 pm Comments DCP- Discharge Planning Updated by [email or web address]: Bianca Jiang on 09/28/18 10:[address] Patient Name: FRANCISCO J HUGHES Admission Status: Urgent Accout number: [id number] Admission Date: 09-26-2018 : 1945 Admission Diagnosis: Attending: CHENCHO CHÁVEZ Current LOS: 2 Anticipated DC Date: Planned Disposition: Home Primary Insurance: HUMANA CHOICE PPO MCR ADVANT Discharge Planning Comments: CM met with patient and family at bedside. Patient plans to return to his home. Patient denies any discharge needs at this time. CM will continue to follow and assist as needed with discharge planning / needs. Rug Sizer: Bianca Jiang DCPIA - Discharge Planning Initial Assessment Updated by [email or web address]: Bianca Jiang on 09/28/18 11:06 am * Is the patient Alert and Oriented? Yes * How many steps to enter\exit or inside your home? * PCP Keeley * Pharmacy [place] * Preadmission Environment Home with Family * ADLs Independent * Equipment None * List name and contact numbers for known caregivers / representatives who currently or will assist patient after discharge: Em Hughes spouse [phone], * Verbal permission to speak to the caregivers and representatives has been obtained from the patient. Yes * Community resources currently utilized None * Additional services required to return to the preadmission environment? No * Can the patient safely return to the preadmission environment? Yes * Has this patient been hospitalized within the prior 30 days at any hospital? No Last DP export: 09/28/18 10:09 a Patient Name: FRANCISCO J HUGHES Page 60121 at 1120 All edits/amendments must be made on the electronic document DICTATION DATE: 09/28/181118 SHOP GIRL: BRAN 09/28/181118 RPT#: [id number] DC DATE: STATUS: ADM IN [facility] [address] [place] [address] END OF REPORT
--- NOTE | ~2018-09-26 | OP ---
PATIENT NAME: FRANCISCO J HUGHES MEDICAL RECORD: [id number] :[birth year] LOCATION:[facility] D.CV08 ADMISSION DATE:09/26/18 SURGEON: ROBE CHÁVEZ MD DATE OF OPERATION: 09/26/2018 SURGEON: Robe Chávez MD ANESTHESIA: General endotracheal, Dr. Cage. OPERATION PERFORMED: Left carotid endarterectomy with patch angioplasty. PREOPERATIVE DIAGNOSIS: Severe left internal carotid artery stenosis. POSTOPERATIVE DIAGNOSIS: Severe left internal carotid artery stenosis. INDICATION FOR OPERATION: Severe left internal carotid artery stenosis. FINDINGS AT OPERATION: Area of stenosis greater than 90% in the left internal carotid artery. There were no EEG changes with clamping or unclamping of the carotid artery. DESCRIPTION OF PROCEDURE: After informed consent, adequate preoperative medication evaluation, the patient was brought to the operating room, placed on the table in the supine position. After induction of general endotracheal anesthesia and application of appropriate monitoring devices, the left neck was prepped and draped in sterile field, utilizing Betadine scrub, alcohol, and Betadine solution. Betadine-impregnated drape was also used. An oblique incision was made in the skin crease. Dissection was carried down to the fascia. Hemostasis maintained with electrocautery. Facial vein was identified and divided. Utilizing sharp dissection, the common carotid, internal and external carotid arteries were dissected free of surrounding structures, protecting the neurological structures. The patient was given a calculated dose of heparin, after 3 minutes, clamps were applied. After 2 minutes, no EEG change. The arteriotomy was made and extended with Amador scissors. Artery underwent endarterectomy sharply. Artery underwent extensive debridement and irrigation. Utilizing a CorMatrix vascular patch and running 7-0 Prolene suture, the arteriotomy was closed with patch angioplasty technique. All maneuvers to remove trapped air were performed. The clamps removed sequentially. There were no EEG changes. The patient was given a calculated dose of protamine to reverse the heparin. Hemostasis was achieved. A #7 Chacorta-Goel drain was left in the depths of the wound and brought out through the base of the neck. Neck was again irrigated. Instrument count and sponge count were correct times 2. Neck was closed in layers utilizing 3-0 Vicryl on the platysma, 5-0 subcuticular Monocryl on the skin. Sterile dressings were applied. The patient tolerated the procedure well and was transferred to cardiovascular intensive care in satisfactory condition. TRANSINT:[id number] Voice Confirmation ID: [id number] DOCUMENT ID: [id number] OPERATIVE REPORT [id number] FRANCISCO J HUGHES EDWARD MD at 1305 CC: [id number] DICTATION DATE: 09/26/18 1000 INFORMATION SECURITY: 09/26/18 1043 DIS IN 09/28/18 [place] [id number] [place] [id number]
--- NOTE | ~2018-09-26 | MORECARE ---
CASE MANAGEMENT DISCHARGE SUMMARY PATIENT: FRANCISCO J HUGHES UNIT: [id number] ADM DATE: 09/26/18 AGE: 72 : 43 SEX: M [facility] AUTHOR: SIXTO TILLMAN PHYSICIAN: REFERRING PHYSICIAN: CHENCHO CHÁVEZ MD DATE OF SERVICE: 09/28/18 Discharge Plan Patient Name: FRANCISCO J HUGHES [facility] [facility] 1945 Planned Disposition: Home Anticipated Discharge Date: Discharge Date: Expected LOS: Initial Reviewer: [email or web address] Initial Review Date: 09/28/2018 Generated: 09/28/18 12:09 pm DCPIA - Discharge Planning Initial Assessment Updated by [email or web address]: Bianca Jiang on 09/28/18 11:06 am * Is the patient Alert and Oriented? Yes * How many steps to enter\exit or inside your home? * PCP Keeley * Pharmacy [facility] * Preadmission Environment Home with Family * ADLs Independent * Equipment None * List name and contact numbers for known caregivers / representatives who currently or will assist patient after discharge: Em Hughes spouse [phone], * Verbal permission to speak to the caregivers and representatives has been obtained from the patient. Yes * Community resources currently utilized None * Additional services required to return to the preadmission environment? No * Can the patient safely return to the preadmission environment? Yes * Has this patient been hospitalized within the prior 30 days at any hospital? No Patient Name: FRANCISCO J HUGHES Page [id number] at 1109 All edits/amendments must be made on the electronic document DICTATION DATE: 09/28/181107 WEB PRESS OPERATOR: BRAN 09/28/188 RPT#: [id number] [place] DATE: STATUS: ADM IN [facility] [address] [place] [address] END OF REPORT
--- NOTE | ~2018-09-26 | MORECARE ---
CASE MANAGEMENT DISCHARGE SUMMARY PATIENT: FRANCISCO J HUGHES UNIT: [id number] ADM DATE: 09/26/18 AGE: 72 : 43 SEX: M [facility] AUTHOR: PRIMO,DOC PHYSICIAN: REFERRING PHYSICIAN: CHENCHO CHÁVEZ MD DATE OF SERVICE: 09/28/18 Discharge Plan Patient Name: FRANCISCO J HUGHES Facility: [facility]:[place] : 1945 Planned Disposition: Home Anticipated Discharge Date: Discharge Date: 09/28/2018 Expected LOS: Initial Reviewer: [email or web address] Initial Review Date: 09/28/2018 Generated: 09/28/18 4:50 pm Comments DCP- Discharge Planning Updated by [email or web address]: Bianca Jiang on 09/28/18 10:[address] Patient Name: FRANCISCO J HUGHES Admission Status: Urgent Accout number: [id number] Admission Date: 09-26-2018 : 1945 Admission Diagnosis: Attending: CHENCHO CHÁVEZ Current LOS: 2 Anticipated DC Date: Planned Disposition: Home Primary Insurance: HU[employer]NA CHOICE PPO MCR [facility] Discharge Planning Comments: CM met with patient and family at bedside. Patient plans to return to his home. Patient denies any discharge needs at this time. CM will continue to follow and assist as needed with discharge planning / needs. Waxer Operator: Bianca Jiang DCPIA - Discharge Planning Initial Assessment Updated by [email or web address]: Bianca Jiang on 09/28/18 11:06 am * Is the patient Alert and Oriented? Yes * How many steps to enter\exit or inside your home? * PCP Keeley * Pharmacy [place] * Preadmission Environment Home with Family * ADLs Independent * Equipment None * List name and contact numbers for known caregivers / representatives who currently or will assist patient after discharge: Em Hughes spouse [phone], * Verbal permission to speak to the caregivers and representatives has been obtained from the patient. Yes * Community resources currently utilized None * Additional services required to return to the preadmission environment? No * Can the patient safely return to the preadmission environment? Yes * Has this patient been hospitalized within the prior 30 days at any hospital? No Last DP export: 09/28/18 10:19 a Patient Name: FRANCISCO J HUGHES Page [id number] at 1550 All edits/amendments must be made on the electronic document DICTATION DATE: 09/28/18 1550 DIRECTOR SCHOOL OF NURSING: BRAN 09/28/18 1550 RPT#: [id number] DC DATE:09/28/18 STATUS: DIS IN [facility] [address] [place] [address] END OF REPORT
[~2018-09-26 05:00] MED LIST changes: -ACETAMINOPHEN325 MG
[2018-09-26] MEDS ORDERED: ACETAMINOPHEN325 MG (05:24)
[2018-09-26 06:51] LABS: APPEARANCE CLEAR (CLEAR); BACTERIA FEW /hpf (NONE SEEN); BILIRUBIN NEGATIVE (NEGATIVE); COLOR YELLOW (YELLOW); EPITHELIAL CELLS RARE /hpf (0-5); GLUCOSE NEGATIVE (NEGATIVE); KETONE NEGATIVE (NEGATIVE); NITRITE NEGATIVE (NEGATIVE); PROTEIN TRACE mg/dL (NEGATIVE); RED CELLS - URINE OCC /hpf (0-5); SPECIFIC GRAVITY 1.015 (1.005-1.020)
[2018-09-27] VITALS (84 sets, daily range): BP systolic 104–165; BP diastolic 48–79
[2018-09-27 06:14] LABS: HEMATOCRIT 37.2 % (42.0-54.0); HEMOGLOBIN 12.8 g/dL (13.5-17.5); MCH 31.8 pg (26.0-34.0); MCHC 34.4 g/dL (31.0-37.0); MCV 92.5 fL (80.0-100.0); MEAN PLATELET VOLUME 10.3 fL (7.4-10.4); RBC 4.02 10x6/uL (4.20-6.10); RDW 13.8 % (11.5-14.5); WBC 8.3 10x3/uL (4.8-10.8)
[2018-09-27 07:09] LABS: CREATININE - SERUM 1.2 mg/dL (0.6-1.3)
[2018-09-27 07:10] LABS: ANION GAP 21.1 mmol/L (8-16); CALCIUM 8.2 mg/dL (8.5-10.1); CARBON DIOXIDE 21.6 mmol/L (21.0-32.0)
[2018-09-27 07:11] LABS: ALBUMIN 3.2 g/dL (3.4-5.0); BILIRUBIN - TOTAL 0.5 mg/dL (0.2-1.3); POTASSIUM - SERUM 4.7 mmol/L (3.5-5.1); PROTEIN - SERUM 6.6 g/dL (6.4-8.2)
[2018-09-28] VITALS (42 sets, daily range): BP systolic 107–158; BP diastolic 47–76
[2018-09-28] MEDS ORDERED: ASPIRIN81 MG PO (09:58)
[2018-09-28] MEDS ORDERED: PLAVIX75 MG PO (09:58)
== END 2018-09-28 11:39 | disposition home or self-care (01) | DRG 39 ==
LOC: D.SDCHOLD 05:00 → D.CVICU 05:00 → D.SDCHOLD 07:30 → D.CVICU 08:28
PROVIDERS: Internal Medicine Cardiovascular Disease
PROC: 03UL0JZ Supplement Left Internal Carotid Artery with Synthetic Substitute, Open Approach (ICD-10-PCS; 2018-09-26)
PROC: 03CL0ZZ Extirpation of Matter from Left Internal Carotid Artery, Open Approach (ICD-10-PCS; principal; 2018-09-26 07:30)
DX: I65.22 Occlusion and stenosis of left carotid artery (principal); E11.22 Type 2 diabetes mellitus with diabetic chronic kidney disease; N18.2 Chronic kidney disease, stage 2 (mild); E78.00 Pure hypercholesterolemia, unspecified; K21.9 Gastro-esophageal reflux disease without esophagitis; M06.9 Rheumatoid arthritis, unspecified; F17.200 Nicotine dependence, unspecified, uncomplicated; E78.5 Hyperlipidemia, unspecified; K22.70 Barrett's esophagus without dysplasia; Z86.73 Personal history of transient ischemic attack (TIA), and cerebral infarction without residual deficits; I13.10 Hypertensive heart and chronic kidney disease without heart failure, with stage 1 through stage 4 chronic kidney disease, or unspecified chronic kidney disease; J44.9 Chronic obstructive pulmonary disease, unspecified

== ENCOUNTER 2018-09-30 19:49 | Emergency (ER) | payer MEDICARE ==
[2018-09-30 20:17] LABS: BASOPHILS 0.2 % (0-2); EOSINOPHILS 3.2 % (0-7); HEMATOCRIT 40.2 % (42.0-54.0); HEMOGLOBIN 13.7 g/dL (13.5-17.5); IMMATURE GRANULOCYTES 0.2 % (0-5); LYMPHOCYTES 31.6 % (15-50); MCH 31.4 pg (26.0-34.0); MCHC 34.1 g/dL (31.0-37.0); MEAN PLATELET VOLUME 9.7 fL (7.4-10.4); MONOCYTES 10.5 % (2-11); NEUTROPHILS 54.3 % (40-80); PLATELET COUNT 185 10x3/uL (130-400); RBC 4.37 10x6/uL (4.20-6.10); RDW 13.6 % (11.5-14.5)
[2018-09-30 20:29] LABS: APTT 36.1 SECONDS (22.8-39.4); INR 1.07 (0.85-1.17); PROTIME 13.4 SECONDS (11.6-15.0)
[2018-09-30 20:33] LABS: ALBUMIN 3.6 g/dL (3.4-5.0); ALKALINE PHOSPHATASE 69 U/L (46-116); ALT (SGPT) 15 U/L (10-68); BILIRUBIN - TOTAL 0.25 mg/dL (0.2-1.3); CALC OSMOLALITY 283 mosm/kg (275-300); CALCIUM 9.2 mg/dL (8.5-10.1); CARBON DIOXIDE 27.4 mmol/L (21.0-32.0); CHLORIDE - SERUM 102 mmol/L (98-107); CREATININE - SERUM 1.3 mg/dL (0.6-1.3); GLUCOSE 145 mg/dL (74-106); POTASSIUM - SERUM 3.7 mmol/L (3.5-5.1); PROTEIN - SERUM 8.1 g/dL (6.4-8.2); SODIUM 141 mmol/L (136-145); UREA NITROGEN 12 mg/dL (7-18); eGFR NON AFRICAN AMERICAN 57 mL/min (90-120)
[2018-09-30 20:36] LABS: CREATINE KINASE 66 UL (21-232)
[2018-09-30 20:40] LABS: TROPONIN-I < 0.017 ng/mL (0.000-0.060)
== END 2018-09-30 23:18 | disposition home or self-care (01) ==
LOC: D.ER 19:49
PROVIDERS: Family Medicine
DX: I10 Essential (primary) hypertension (principal); F17.200 Nicotine dependence, unspecified, uncomplicated

== ENCOUNTER 2018-11-14 08:15 | Inpatient (IN) | payer MEDICARE ==
[2018-11-13 11:32] LABS: HEMATOCRIT 39.1 % (42.0-54.0); HEMOGLOBIN 13.2 g/dL (13.5-17.5); MCHC 33.8 g/dL (31.0-37.0); MCV 91.8 fL (80.0-100.0); MEAN PLATELET VOLUME 9.7 fL (7.4-10.4); RBC 4.26 10x6/uL (4.20-6.10); RDW 13.9 % (11.5-14.5); WBC 6.8 10x3/uL (4.8-10.8)
[2018-11-13 11:34] LABS: APPEARANCE CLEAR (CLEAR); BILIRUBIN NEGATIVE (NEGATIVE); COLOR YELLOW (YELLOW); GLUCOSE NEGATIVE (NEGATIVE); KETONE NEGATIVE (NEGATIVE); NITRITE NEGATIVE (NEGATIVE); PROTEIN NEGATIVE (NEGATIVE); SPECIFIC GRAVITY 1.015 (1.005-1.020); UROBILINOGEN NORMAL (NORMAL)
[~2018-11-14] VITALS: Ht 172.7 cm; Wt 93.9 kg
[2018-11-14] VITALS (10 sets, daily range): BP systolic 126–154; BP diastolic 76–92; BMI 31.6; BMI 31.5
[~2018-11-14 08:15] MED LIST changes: +ACETAMINOPHEN325 MG PO; +ASPIRIN81 MG PO; +COZAAR100 MG PO; +PLAVIX75 MG PO
[2018-11-14] MEDS ORDERED: BENADRYL25 MG PO (08:41)
--- NOTE | 2018-11-14 18:52 | NUR ---
PT RESTING IN BED. [place]. AROUSED BY VERBAL STIMULI. NO S/S OF ACUTE DISTRESS. 21 ML OF DILAUDID LEFT IN SYRINGE. 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 CL IN PLACE.
--- NOTE | 2018-11-14 19:45 | NUR ---
PT SITTING UP IN BED, NO SIGNS OF DISTRESS. ALERT AND ORIENTED. USING PILLOW TO SPLINT ABD WHEN COUGHING. O2 3L/NC. BREATHING SHALLOW, EVEN. IV LEFT HAND INFUSING NS @ 125 W/ DILAUDID HOTEL OFFICE MANAGER. REMINDED PT ON HOTEL OFFICE MANAGER USE. PT VERBALIZED UNDERSTANDING. STATES NO PAIN AT THIS TIME. RATLIFF NOTED W/ BLUE URINE. SCDS IN PLACE. HARD OF HEARING. ABD INCISION AND 2 LAP SITES CDI. PT STATES NO NEEDS OR COMPLAINTS AT THIS TIME. CL IN REACH, WILL CONTINUE TO MONITOR
[2018-11-15 00:59] VITALS: BP 137/72
[2018-11-15 06:19] LABS: BASOPHILS 0 % (0-2); EOSINOPHILS 0 % (0-7); HEMATOCRIT 37.7 % (42.0-54.0); HEMOGLOBIN 12.6 g/dL (13.5-17.5); IMMATURE GRANULOCYTES 0.1 % (0-5); LYMPHOCYTES 10.1 % (15-50); MCH 30.7 pg (26.0-34.0); MCHC 33.4 g/dL (31.0-37.0); MCV 91.7 fL (80.0-100.0); MEAN PLATELET VOLUME 9.8 fL (7.4-10.4); MONOCYTES 7.3 % (2-11); NEUTROPHILS 82.5 % (40-80); PLATELET COUNT 205 10x3/uL (130-400); RBC 4.11 10x6/uL (4.20-6.10); RDW 13.7 % (11.5-14.5); WBC 7.4 10x3/uL (4.8-10.8)
[2018-11-15 06:44] LABS: ALBUMIN 3.1 g/dL (3.4-5.0); ALKALINE PHOSPHATASE 60 U/L (46-116); ALT (SGPT) 14 U/L (10-68); BILIRUBIN - TOTAL 0.29 mg/dL (0.2-1.3); CALC OSMOLALITY 272 mosm/kg (275-300); CALCIUM 8.4 mg/dL (8.5-10.1); CARBON DIOXIDE 21.9 mmol/L (21.0-32.0); CHLORIDE - SERUM 100 mmol/L (98-107); CREATININE - SERUM 1.2 mg/dL (0.6-1.3); GLUCOSE 133 mg/dL (74-106); MAGNESIUM - SERUM 1.8 mg/dL (1.8-2.4); PHOSPHOROUS 4.2 mg/dL (2.5-4.9); POTASSIUM - SERUM 4.9 mmol/L (3.5-5.1); PROTEIN - SERUM 6.7 g/dL (6.4-8.2); SODIUM 135 mmol/L (136-145); TROPONIN-I < 0.017 ng/mL (0.000-0.060); UREA NITROGEN 16 mg/dL (7-18); eGFR NON AFRICAN AMERICAN 63 mL/min (90-120)
[2018-11-15 08:46] VITALS: BP 155/81
--- NOTE | 2018-11-15 11:11 | NUR ---
MEDICATED WITH ZOFRAN FOR C/O NAUSEA AND VOMOTTING. C/L IN REACH AT BEDSIDE.
[2018-11-15 13:09] VITALS: BMI 31.4
[2018-11-15 15:58] VITALS: BP 166/88
--- NOTE | 2018-11-15 16:19 | NUR ---
PT IS RESTING IN BED WITH EYES OPEN. FAMILY AT BEDSIDE. PT DENIES PRESENCE OF PAIN AT THIS TIME. BED IS IN THE LOWEST POSITION. CALL LIGHT AND BEDSIDE TABLE ARE WITHIN REACH. PT AND PT FAMILY MEMBERS DENY FURTHER NEEDS AT THIS TIME.
[2018-11-15 18:35] VITALS: BP 181/83
[2018-11-16 08:08] LABS: BASOPHILS 0.1 % (0-2); EOSINOPHILS 0.4 % (0-7); HEMATOCRIT 38.5 % (42.0-54.0); HEMOGLOBIN 12.8 g/dL (13.5-17.5); IMMATURE GRANULOCYTES 0.1 % (0-5); LYMPHOCYTES 25.4 % (15-50); MCH 30.8 pg (26.0-34.0); MCHC 33.2 g/dL (31.0-37.0); MCV 92.5 fL (80.0-100.0); MEAN PLATELET VOLUME 9.8 fL (7.4-10.4); MONOCYTES 11.9 % (2-11); NEUTROPHILS 62.1 % (40-80); PLATELET COUNT 193 10x3/uL (130-400); RBC 4.16 10x6/uL (4.20-6.10); RDW 13.5 % (11.5-14.5); WBC 6.7 10x3/uL (4.8-10.8)
[2018-11-16 08:16] LABS: ALBUMIN 3.2 g/dL (3.4-5.0); ALKALINE PHOSPHATASE 55 U/L (46-116); ALT (SGPT) 13 U/L (10-68); BILIRUBIN - TOTAL 0.27 mg/dL (0.2-1.3); CALC OSMOLALITY 278 mosm/kg (275-300); CALCIUM 8.8 mg/dL (8.5-10.1); CARBON DIOXIDE 25.4 mmol/L (21.0-32.0); CHLORIDE - SERUM 104 mmol/L (98-107); CREATININE - SERUM 1.2 mg/dL (0.6-1.3); GLUCOSE 102 mg/dL (74-106); MAGNESIUM - SERUM 1.8 mg/dL (1.8-2.4); PROTEIN - SERUM 7.2 g/dL (6.4-8.2); SODIUM 140 mmol/L (136-145); UREA NITROGEN 13 mg/dL (7-18); eGFR NON AFRICAN AMERICAN 63 mL/min (90-120)
[2018-11-16 08:28] LABS: PHOSPHOROUS 2.1 mg/dL (2.5-4.9); POTASSIUM - SERUM 3.8 mmol/L (3.5-5.1); TROPONIN-I < 0.017 ng/mL (0.000-0.060)
--- NOTE | 2018-11-16 08:29 | NUR ---
AAOX4. SITTING UP IN BED TALKING ON PHONE. DENIES PAIN. NO S/S OF ACUTE DISTRESS. CL IN PLACE.
[2018-11-16 08:37] VITALS: BP 171/86
--- NOTE | 2018-11-16 11:44 | NUR ---
SPOKE WITH DR GUPTA ABOUT AND PH 2.1. ALONSO RESTARTED HOME MEDS AND ORDERED EP. CONSULT IN FOR DR LOPEZ TO SEE PT PRIMARY. FC DRAINING LIGHT GRENN/YELLOW URINE. FC DC PER STUDENTS. NO S/S OF ACUTE DISTRESS. CL IN PLACE.
[2018-11-16 12:27] VITALS: BP 186/90
--- NOTE | 2018-11-16 12:45 | MORECARE ---
CASE MANAGEMENT DISCHARGE SUMMARY PATIENT: FRANCISCO J HUGHES UNIT: [id number] ADM DATE: 11/14/18 AGE: 73 : 43 SEX: M ROOM/BED: D.2211 AUTHOR: SIXTO TILLMAN PHYSICIAN: REFERRING PHYSICIAN: HEATH GUPTA MD DATE OF SERVICE: 11/16/18 Discharge Plan Patient Name: FRANCISCO J HUGHES Facility: [facility]:[place] : 1945 Planned Disposition: Home Anticipated Discharge Date: Discharge Date: Expected LOS: Initial Reviewer: [email or web address] Initial Review Date: 11/14/2018 Generated: 11/16/18 1:45 pm Comments DCP- Discharge Planning Updated by [id number]: Mariaelena Doll on 11/16/18 11:[address] Patient Name: FRANCISCO J HUGHES Admission Status: Elective Accout number: [id number] Admission Date: 11-14-2018 : 1945 Admission Diagnosis: Attending: HEATH GUPTA Current LOS: 2 Anticipated DC Date: Planned Disposition: Home Primary Insurance: HU[employer]NA CHOICE PPO M[employer] Discharge Planning Comments: CM met with patient to assess discharge planning needs. Patient stated that he lives in [place] where he plans to return when he is discharged. He is independent with his care. He lives with his and stated he home is safe to return. His son Alin will be his food service driver home. He does not use any DME or HH services and does not think he will need any when he is discharge. CM will continue to follow and assist with DC planning as needed Semiconductor Processor: Mariaelena Doll DCPIA - Discharge Planning Initial Assessment Updated by [email or web address]: Mariaelena Doll on 11/16/18 12:41 pm * Is the patient Alert and Oriented? Yes * How many steps to enter\exit or inside your home? * PCP JOHN * Pharmacy [facility] ([facility]) * Preadmission Environment Home with Family * ADLs Independent * Equipment None * List name and contact numbers for known caregivers / representatives who currently or will assist patient after discharge: RICHA () [phone] * Verbal permission to speak to the caregivers and representatives has been obtained from the patient. N/A * Community resources currently utilized None * Additional services required to return to the preadmission environment? No * Can the patient safely return to the preadmission environment? Yes * Has this patient been hospitalized within the prior 30 days at any hospital? No Patient Name: FRANCISCO J HUGHES Page [id number] at 1245 All edits/amendments must be made on the electronic document DICTATION DATE: 11/16/181243 PHONE TECHNICIAN: BRAN 11/16/181243 RPT#: [id number] DC DATE: STATUS: ADM IN [facility] [address] [place] [address] END OF REPORT
--- NOTE | 2018-11-16 12:55 | OP ---
PATIENT NAME: FRANCISCO J HUGHES MEDICAL RECORD: [id number] :[birth year] LOCATION:D.MS Rob2211 ADMISSION DATE:11/14/18 SURGEON: HEATH GUPTA MD DATE OF OPERATION: 11/14/2018 PREOPERATIVE DIAGNOSIS: History of perforated sigmoid diverticulitis. POSTOPERATIVE DIAGNOSES: History of perforated sigmoid diverticulitis with persistent active acute diverticulitis involving the sigmoid colon. PROCEDURES: Hand-assisted laparoscopic surgery - sigmoid colectomy. SURGEON: Heath Gupta MD PROGRAM MANAGEMENT MANAGER: Alta Cruz APN BLOOD LOSS: Minimal. ANESTHESIA: General. COMPLICATIONS: None. The risks, possible complications and alternatives to procedure were explained to the patient. He elects to proceed. Discussion specifically included, but was not limited to, bleeding requiring emergency reoperation, infection, intestinal injury, anastomotic leakage. OPERATIVE COURSE: The patient was conveyed to the operating room electively on 11/14/2018. General anesthesia was induced by the anesthesia staff. The abdomen was sterilely prepped and draped. The patient was in adjustable stirrups. The perineum was sterilely prepped and draped as well. A small skin munira was accomplished in the left upper quadrant. A Veress needle was inserted through the skin munira into the peritoneal cavity. CO2 insufflation was begun. Once sufficient pneumoperitoneum had been achieved, a 5-mm trocar was inserted in the epigastrium. Another 5-mm trocar was inserted at the umbilicus. Another 5-mm trocar was inserted in the midline in the suprapubic area. During insertion of the Veress needle and all trocars, there appeared to have been no injury to the bowels, any intraperitoneal or retroperitoneal structures. I was able to fold the left colon medially. I took down the white line of Toldt with the laparoscopic EnSeal device. I took this all the way up to the spleen. I did not take down the splenocolic ligament. I was able to mobilize more of the descending and sigmoid colons. I then desufflated the abdomen. A transverse incision was accomplished 2 fingerbreadths cephalad to the pubic symphysis. Sharp dissection was carried down through the skin and subcutaneous tissue as well as Ashwin fascia. The anterior fascia was incised transversely. I the rectus abdominis muscles in the midline. I entered the peritoneal cavity sharply. Some bleeding along the inferior portion of the peritoneum was controlled with a running locking #1 Vicryl suture. OPERATIVE REPORT [id number] FRANCISCO J HUGHES An Oj retractor was placed. Over the Oj retractor, Gelport device was inserted. Through the Gelport device, I was able to insert my hand and I was able to bluntly mobilize more of the left colon. I then took off the top of the Gelport device and worked through the Oj retractor. I chose the distal extent of my resection to be the junction of the sigmoid and descending colons. I stapled across the large bowel here with a YARI-75 stapler. I then chose the proximal extent of my resection to be the junction of the descending and sigmoid colons. I stapled across the large bowel here with a YARI-75 stapler. The interpose mesentery was taken down with the Super Jaw EnSeal device. This not only sealed the mesenteric blood vessels, but also divided the mesentery. The specimen was sent to pathology as a single specimen. The descending colon and rectum were then placed in apposition side by side with their antimesenteric borders held in place with multiple interrupted 3-0 Vicryl sutures. A small proctotomy and a small colotomy were accomplished. Anvils of the YARI-75 stapler were advanced and then fired. The resulting colorectal defect was then closed with a single firing of the TA 60 stapler. I tried to identify the appendix and I was unable to easily get to the appendix through this lower transverse incision, so an appendectomy was not performed. I irrigated the pelvis and aspirated. There was no bleeding. No damage to either ureter. After removing the Oj retractor, I reperitonealized with a running #1 Vicryl suture. The rectus muscles were approximated in the midline with multiple interrupted horizontal mattress #1 Vicryls. The anterior fascia was approximated with running #1 Vicryls. Ashwin fascia was approximated with interrupted 3-0 Vicryls. The subdermis was approximated with interrupted 3-0 Vicryls. The skin was approximated with a running intracuticular 3-0 Vicryl. The skin at the umbilicus was closed with interrupted 4-0 Vicryl Rapide sutures. The other trocar site was closed with a single intracuticular 3-0 Vicryl suture. The patient was then extubated and conveyed to the post-anesthesia care unit where he was in stable condition. He will be admitted to the med/surg unit for IV narcotic analgesia. TRANSINT:[id number] Voice Confirmation ID: [id number] DOCUMENT ID: [id number] HEATH GUPTA MD at 1255 CC: [id number] DICTATION DATE: 11/15/181838 MACHINE FOLDER: 11/16/18 0004 ADM IN [place] [id number] [place] [id number]
[2018-11-16 16:32] VITALS: BP 157/77
--- NOTE | 2018-11-16 17:24 | NUR ---
PT REPORTS HAVING A BM. NO S/S OF ACUTE DISTRESS. CL IN PLACE.
--- NOTE | 2018-11-16 18:14 | NUR ---
PT SITTING UP IN BED WATCHING NEWS. NO S/S OF ACUTE DISTRESS. CL IN PLACE.
--- NOTE | 2018-11-16 19:15 | NUR ---
RECEIVED CARE FORM DAY NURSE. SITTING UP IN BED. REPORTS NO NEEDS AT THIS TIME. CALL LIGHT AT SIDE. IV INFUSING PER ORDER TO PATENT LEFT HAND.
[2018-11-16 20:00] VITALS: BP 157/86
[2018-11-17] VITALS: BP 171/89
[2018-11-17 04:00] VITALS: BP 184/97
[2018-11-17 07:10] VITALS: Ht 172.7 cm; Wt 93.9 kg
[2018-11-17 08:05] VITALS: BP 170/53
--- NOTE | 2018-11-17 08:09 | NUR ---
PT ALERT X 4. COURSE WHEEZING TO LOWER LOBES AND UPPER LEFT LOBE. 2 LAP SITES AND INCISION TO ABDOMEN. IV TO LEFT HAND, PATENT, DRESSING CLEAN DRY AND INTACT. PT REPORTING NO PAIN AT THIS TIME. BED LOW, CALL LIGHT IN REACH, NO OTHER NEEDS AT THIS TIME.
[2018-11-17 11:49] VITALS: BP 162/88
[2018-11-17 16:45] VITALS: BP 160/89
--- NOTE | 2018-11-17 19:15 | NUR ---
RECEIVED CARE FROM DAY NURSE. PT UP IN ROOM. REPORTS NO NEEDS AT THIS TIME. CALL LIGHT WITHIN REACH. IV INFUSING TO PATENT LEFT HAND PER ORDER.
[2018-11-17 20:41] VITALS: BP 157/96
[2018-11-18 00:40] VITALS: BP 159/96
--- NOTE | 2018-11-18 04:16 | NUR ---
SITTING UP IN BED SIDE CHAIR. NO NEEDS VOICED AT THIS TIME.
--- NOTE | 2018-11-18 04:34 | NUR ---
I AGREE WITH THE SUPPLIER QUALITY ENGINEER ASSESSMENT.
[2018-11-18 05:01] VITALS: BP 171/90
[2018-11-18 05:42] LABS: BASOPHILS 0.2 % (0-2); EOSINOPHILS 2.4 % (0-7); HEMATOCRIT 36.2 % (42.0-54.0); HEMOGLOBIN 12.1 g/dL (13.5-17.5); LYMPHOCYTES 29.7 % (15-50); MCH 30.3 pg (26.0-34.0); MCHC 33.4 g/dL (31.0-37.0); MEAN PLATELET VOLUME 10.1 fL (7.4-10.4); MONOCYTES 13.2 % (2-11); NEUTROPHILS 54.5 % (40-80); PLATELET COUNT 180 10x3/uL (130-400); RDW 13.3 % (11.5-14.5); WBC 5.4 10x3/uL (4.8-10.8)
[2018-11-18 05:49] LABS: MCV 90.5 fL (80.0-100.0)
--- NOTE | 2018-11-18 07:04 | NUR ---
REQUEST IV DC'D SINCE GOING HOME. DC'D WITH TIP INTACT.
--- NOTE | 2018-11-18 08:11 | NUR ---
PT IS SITING UP IN ROOM ALREADY DRESSED, PT HAD NIGHT NURSE DC IV STATING HE IS GOING HOME TODAY, PT HAS WALKED AROUND NURSING STATION ALL MORNING, NO NEEDS VOICED JUST STATED HE IS WAITING FOR DR TO BE DC, ADMINISTERED MORNING MEDS
[2018-11-18 08:46] VITALS: BP 190/104
[2018-11-18 13:10] VITALS: BP 164/76
--- NOTE | 2018-11-18 13:43 | NUR ---
PT DC HOME WENT OVER DC INSTRUCTIONS WITH PT ADVISED PT TO F/U WITH DR GUPTA IN 2-3 WEEKS ALL QUESTIONS ANSWERED PT STATED ALREADY TAKING TYLENOL FOR PAIN AND HE IS JUST SORE RIGHT NOW,
--- NOTE | 2018-11-20 12:25 | MORECARE ---
CASE MANAGEMENT DISCHARGE SUMMARY PATIENT: FRANCISCO J HUGHES UNIT: [id number] ADM DATE: 11/14/18 AGE: 73 : 43 SEX: M ROOM/BED: D.2211 AUTHOR: SIXTO TILLMAN PHYSICIAN: REFERRING PHYSICIAN: HEATH GUPTA MD DATE OF SERVICE: 11/20/18 Discharge Plan Patient Name: FRANCISCO J HUGHES Facility: [facility]:[place] : 1945 Planned Disposition: Home Anticipated Discharge Date: Discharge Date: 11/18/2018 Expected LOS: 0 Initial Reviewer: [email or web address] Initial Review Date: 11/14/2018 Generated: 11/20/18 1:25 pm Comments DCP- Discharge Planning Updated by [email or web address]: Mariaelena Doll on 11/16/18 11:[address] Patient Name: FRANCISCO J HUGHES Admission Status: Elective Accout number: [id number] Admission Date: 11-14-2018 : 1945 Admission Diagnosis: Attending: HEATH GUPTA Current LOS: 2 Anticipated DC Date: Planned Disposition: Home Primary Insurance: HU[employer]NA CHOICE PPO [employer] Discharge Planning Comments: CM met with patient to assess discharge planning needs. Patient stated that he lives in [place] where he plans to return when he is discharged. He is independent with his care. He lives with his and stated he home is safe to return. His son Alin will be his crude oil driver home. He does not use any DME or HH services and does not think he will need any when he is discharge. CM will continue to follow and assist with DC planning as needed Jig And Fixture Builder: Mariaelena Doll DCPIA - Discharge Planning Initial Assessment Updated by [email or web address]: Mariaelena Doll on 11/16/18 12:41 pm * Is the patient Alert and Oriented? Yes * How many steps to enter\exit or inside your home? * PCP JOHN * Pharmacy [facility] ([facility]) * Preadmission Environment Home with Family * ADLs Independent * Equipment None * List name and contact numbers for known caregivers / representatives who currently or will assist patient after discharge: RICHA () [phone] * Verbal permission to speak to the caregivers and representatives has been obtained from the patient. N/A * Community resources currently utilized None * Additional services required to return to the preadmission environment? No * Can the patient safely return to the preadmission environment? Yes * Has this patient been hospitalized within the prior 30 days at any hospital? No Last DP export: 11/16/18 11:45 a Patient Name: FRANCISCO J HUGHES Page [id number] at 1225 All edits/amendments must be made on the electronic document DICTATION DATE: 11/20/181223 OVERCASTER: BRAN 11/20/181223 RPT#: [id number] DC DATE:11/18/18 STATUS: DIS IN [facility] [address] [place] [address] END OF REPORT
== END 2018-11-18 14:11 | disposition home or self-care (01) | DRG 331 ==
LOC: D.SDCHOLD 08:15 → D.MS 08:15 → D.SDCHOLD 10:30 → D.MS 15:51
PROVIDERS: Anesthesiology; ADMIT Surgery
PROC: 0DTN0ZZ Resection of Sigmoid Colon, Open Approach (ICD-10-PCS; principal; 2018-11-14 10:30)
DX: K57.32 Diverticulitis of large intestine without perforation or abscess without bleeding (principal); I10 Essential (primary) hypertension; F17.200 Nicotine dependence, unspecified, uncomplicated; E78.5 Hyperlipidemia, unspecified; J44.9 Chronic obstructive pulmonary disease, unspecified; Z86.73 Personal history of transient ischemic attack (TIA), and cerebral infarction without residual deficits

== ENCOUNTER → 2019-10-11 09:56 | Outpatient (CLI) | payer MEDICARE ==
[2018-11-17 07:10] VITALS: BMI 31.4
[~2019-10-11 09:56] MED LIST changes: +BENADRYL25 MG PO
== END | disposition home or self-care (01) ==
LOC: D.US 09:56 → D.CT 10:30 → D.US 10:30
PROVIDERS: ATTEND Internal Medicine Cardiovascular Disease
DX: I65.23 Occlusion and stenosis of bilateral carotid arteries (principal)

== ENCOUNTER → 2021-02-16 08:23 | Outpatient (CLI) | payer MEDICARE ==
[2018-11-17 07:10] VITALS: BMI 31.4
== END | disposition home or self-care (01) ==
LOC: D.US 08:23
PROVIDERS: ATTEND Internal Medicine Interventional Cardiology
DX: I65.21 Occlusion and stenosis of right carotid artery (principal)